=== PATIENT | male | born 1980 | race American Indian/Alaskan Native ===

== ENCOUNTER 2017-06-12 22:44 | Emergency (ER) | payer MEDICARE ==
[2017-06-12 23:55] LABS: Basophils % (Auto) 0.8 % (0.0-1.8); Eosinophils % (Auto) 0.3 % (0.0-4.3); Hematocrit 39.8 % (35.5-45.6); Hemoglobin 13.4 gm/dl (11.8-15.2); Mean Corpuscular HGB Conc 34 % (32-34); Mean Corpuscular Hemoglobin 27 pg (28-32); Mean Corpuscular Volume 79 fl (84-94); Platelet Count 164 K/mm3 (140-440); Red Blood Count 5.02 M/mm3 (3.65-5.03); Red Cell Distribution Width 15.9 % (13.2-15.2); White Blood Count 6.3 K/mm3 (4.5-11.0)
[2017-06-13 00:17] LABS: Anion Gap 23 mmol/L; BUN/Creatinine Ratio 8.88; Blood Urea Nitrogen 8 mg/dL (9-20); Calcium 9.6 mg/dL (8.4-10.2); Carbon Dioxide 22 mmol/L (22-30); Chloride 97.9 mmol/L (98-107); Glucose 98 mg/dL (75-100); Sodium 139 mmol/L (137-145)
[2017-06-13] MEDS ORDERED: ATIVAN IM PRN (06:32)
--- NOTE | 2017-06-13 06:33 | Emergency Department Report ---
ED General Adult HPI - General Chief complaint: Medical Clearance Stated complaint: MH EVAL Time Seen by Provider: 06/13/17 06:25 Source: patient, family, RN notes reviewed Mode of arrival: Ambulatory Limitations: No Limitations - History of Present Illness Initial comments: This is a 36-year-old male. He is previously unknown to me. He has a past medical history of schizophrenia. He is accompanied by his mother, Miss Jo Ann Cole; [phone]. The patient's mother has brought the patient to the ER for evaluation because he is psychiatrically decompensated. She reports she is mumbling to himself, and is threatening to hit her. The patient's mother is concerned that the patient is dangerous to her. Does not have access to guns or firearms, no toxic ingestions. No other complaints. Symptoms have been constant. They do not have exacerbating or relieving factors. The patient's mother further reports this is similar to prior episodes of psychiatric decompensation. -: Gradual Consistency: constant Improves with: none Worsens with: none Associated Symptoms: denies other symptoms - Related Data Home Medications Medication Instructions Recorded Confirmed Last Taken Olanzapine [ZyPREXA] 20 mg PO QHS 06/13/17 06/13/17 Unknown Allergies Allergy/AdvReac Type Severity Reaction Status Date / Time diphenhydramine HCl Allergy Swelling Verified 06/12/17 23:25 [From Benadryl] ED Review of Systems ROS: Stated complaint: MH EVAL Other details as noted in HPI Constitutional: denies: fever Eyes: denies: vision change ENT: denies: epistaxis Respiratory: denies: cough Cardiovascular: denies: chest pain Gastrointestinal: denies: abdominal pain Genitourinary: denies: dysuria Musculoskeletal: denies: as per HPI Skin: denies: lesions Neurological: denies: headache Psychiatric: denies: suicidal thoughts ED Past Medical Hx - Past Medical History Previous Medical History?: Yes Hx Psychiatric Treatment: Yes (schitzophrenia) - Surgical History Past Surgical History?: No - Social History Smoking Status: Never Smoker Substance Use Type: None - Medications Home Medications: Home Medications Medication Instructions Recorded Confirmed Last Taken Type Olanzapine [ZyPREXA] 20 mg PO QHS 06/13/17 06/13/17 Unknown History ED Physical Exam - General Limitations: Other (patient is psychiatrically decompensated, he is disorganized , and he has a tangential thought process.) General appearance: alert, in no apparent distress - Head Head exam: Present: atraumatic, normocephalic - Eye Eye exam: Present: normal appearance, PERRL, EOMI - ENT ENT exam: Present: normal exam, normal orophraynx, mucous membranes moist, normal external ear exam - Neck Neck exam: Present: normal inspection, full ROM. Absent: tenderness, meningismus - Respiratory Respiratory exam: Present: normal lung sounds bilaterally. Absent: respiratory distress, wheezes, rales, rhonchi, stridor, chest wall tenderness, accessory muscle use, decreased breath sounds, prolonged expiratory - Cardiovascular Cardiovascular Exam: Present: regular rate, normal rhythm, normal heart sounds. Absent: bradycardia, tachycardia, irregular rhythm, systolic murmur, diastolic murmur, rubs, gallop - GI/Abdominal GI/Abdominal exam: Present: soft, normal bowel sounds. Absent: distended, tenderness, guarding, rebound, rigid, pulsatile mass - Rectal Rectal exam: Present: deferred - Extremities Exam Extremities exam: Present: normal inspection, full ROM, normal capillary refill. Absent: pedal edema, joint swelling, calf tenderness - Back Exam Back exam: Present: normal inspection, full ROM. Absent: tenderness, CVA tenderness (R), CVA tenderness (L), muscle spasm, paraspinal tenderness, vertebral tenderness - Neurological Exam Neurological exam: Present: alert, normal gait, other (Extraocular movements intact. Tongue midline. No facial droop. Facial sensation intact to light touch in the V1, V2, V3 distribution bilaterally. 5 and 5 strength in 4 extremities.. Sensation is intact to light touch in 4 extremities.). Absent: motor sensory deficit - Psychiatric Psychiatric exam: Present: flat affect - Skin Skin exam: Present: warm, dry, intact, normal color. Absent: rash ED Course Vital Signs 06/12/17 06/13/17 06/13/17 23:25 06:43 06:45 Temperature 98.7 F 98.6 F Pulse Rate 76 72 Respiratory 18 20 20 Rate Blood Pressure 146/101 Blood Pressure 145/98 [Left] O2 Sat by Pulse 98 98 98 Oximetry 06/13/17 06/13/17 06/13/17 08:00 10:00 13:24 Temperature 98.6 F 98.5 F Pulse Rate 70 71 68 Respiratory 18 18 15 Rate Blood Pressure Blood Pressure 136/89 142/88 132/78 [Left] O2 Sat by Pulse 100 100 100 Oximetry - Reevaluation(s) Reevaluation #1: 06/13/17 12:25 Laboratory studies reviewed, they are unremarkable, there is no immediate medical contraindication to psychiatric admission/evaluation and consultation at this time. ED Medical Decision Making - Lab Data Result diagrams: 06/12/17 23:35 06/12/17 23:35 Vital Signs 06/12/17 06/13/17 06/13/17 23:25 06:43 06:45 Temperature 98.7 F 98.6 F Pulse Rate 76 72 Respiratory 18 20 20 Rate Blood Pressure 146/101 Blood Pressure 145/98 [Left] O2 Sat by Pulse 98 98 98 Oximetry Lab Results 06/12/17 06/12/17 06/12/17 Range/Units 23:35 23:35 23:35 WBC 6.3 (4.5-11.0) K/mm3 RBC 5.02 (3.65-5.03) M/mm3 Hgb 13.4 (11.8-15.2) gm/dl Hct 39.8 (35.5-45.6) % MCV 79 L (84-94) fl MCH 27 L (28-32) pg MCHC 34 (32-34) % RDW 15.9 H (13.2-15.2) % Plt Count 164 (140-440) K/mm3 Lymph % (Auto) 21.1 (13.4-35.0) % Rankin % (Auto) 5.4 (0.0-7.3) % Eos % (Auto) 0.3 (0.0-4.3) % Baso % (Auto) 0.8 (0.0-1.8) % Lymph # 1.3 (1.2-5.4) K/mm3 Rankin # 0.3 (0.0-0.8) K/mm3 Eos # 0.0 (0.0-0.4) K/mm3 Baso # 0.0 (0.0-0.1) K/mm3 Seg Neutrophils % 72.4 H (40.0-70.0) % Seg Neutrophils # 4.5 (1.8-7.7) K/mm3 Carbon Dioxide 22 (22-30) mmol/L BUN 8 L (9-20) mg/dL Creatinine 0.9 (0.8-1.5) mg/dL Estimated GFR > 60 ml/min BUN/Creatinine Ratio 8.88 % Glucose 98 (75-100) mg/dL Calcium 9.6 (8.4-10.2) mg/dL Urine Color (Yellow) Urine Turbidity (Clear) Urine pH (5.0-7.0) Ur Specific [place] (1.003-1.030) Urine Protein (Negative) mg/dL Urine Glucose (UA) (Negative) mg/dL Urine Ketones (Negative) mg/dL Urine Blood (Negative) Urine Nitrite (Negative) Urine Bilirubin (Negative) Urine Urobilinogen (<2.0) mg/dL Ur Leukocyte Esterase (Negative) Urine WBC (Auto) (0.0-6.0) /HPF Urine RBC (Auto) (0.0-6.0) /HPF U Epithel Cells (Auto) (0-13.0) /HPF Urine Mucus /HPF Urine Opiates Screen Urine Methadone Screen Ur Barbiturates Screen Ur Phencyclidine Scrn Ur Amphetamines Screen U Benzodiazepines Scrn Urine Cocaine Screen U Marijuana (THC) Screen Drugs of Abuse Note Plasma/Serum Alcohol < 0.01 (0-0.07) gm% 06/13/17 06/13/17 Range/Units 06:30 06:30 WBC (4.5-11.0) K/mm3 RBC (3.65-5.03) M/mm3 Hgb (11.8-15.2) gm/dl Hct (35.5-45.6) % MCV (84-94) fl MCH (28-32) pg MCHC (32-34) % RDW (13.2-15.2) % Plt Count (140-440) K/mm3 Lymph % (Auto) (13.4-35.0) % Rankin % (Auto) (0.0-7.3) % Eos % (Auto) (0.0-4.3) % Baso % (Auto) (0.0-1.8) % Lymph # (1.2-5.4) K/mm3 Rankin # (0.0-0.8) K/mm3 Eos # (0.0-0.4) K/mm3 Baso # (0.0-0.1) K/mm3 Seg Neutrophils % (40.0-70.0) % Seg Neutrophils # (1.8-7.7) K/mm3 Carbon Dioxide (22-30) mmol/L BUN (9-20) mg/dL Creatinine (0.8-1.5) mg/dL Estimated GFR ml/min BUN/Creatinine Ratio % Glucose (75-100) mg/dL Calcium (8.4-10.2) mg/dL Urine Color Yellow (Yellow) Urine Turbidity Clear (Clear) Urine pH 6.0 (5.0-7.0) Ur Specific [place] 1.012 (1.003-1.030) Urine Protein <15 mg/dl (Negative) mg/dL Urine Glucose (UA) Neg (Negative) mg/dL Urine Ketones Neg (Negative) mg/dL Urine Blood Sm (Negative) Urine Nitrite Neg (Negative) Urine Bilirubin Neg (Negative) Urine Urobilinogen < 2.0 (<2.0) mg/dL Ur Leukocyte Esterase Neg (Negative) Urine WBC (Auto) < 1.0 (0.0-6.0) /HPF Urine RBC (Auto) < 1.0 (0.0-6.0) /HPF U Epithel Cells (Auto) < 1.0 (0-13.0) /HPF Urine Mucus Few /HPF Urine Opiates Screen Presumptive negative Urine Methadone Screen Presumptive negative Ur Barbiturates Screen Presumptive negative Ur Phencyclidine Scrn Presumptive negative Ur Amphetamines Screen Presumptive negative U Benzodiazepines Scrn Presumptive negative Urine Cocaine Screen Presumptive negative U Marijuana (THC) Screen Presumptive negative Drugs of Abuse Note Disclamer Plasma/Serum Alcohol (0-0.07) gm% Sodium: 139 Potassium: 4.0 Chloride: 97.9. - Medical Decision Making Differential diagnosis: Schizophrenia, medical clearance for psychiatric placement, mood disorder Assessment and plan: 36-year-old male with decompensated psychiatric disease, with his mother reporting that she feels threatened by the patient, and she is concerned that the patient will hit her. The patient has an unremarkable physical examination, his laboratory studies thus far are unremarkable as well. Patient is placed on a 1013. Psychiatric consult will be obtained. Critical care attestation.: If time is entered above; I have spent that time in minutes in the direct care of this critically ill patient, excluding procedure time. ED Disposition Clinical Impression: Medical clearance for psychiatric admission Disposition: [id number]/TX-65 PSY HOSP/PSY UNIT Is pt being admited?: No Does the pt Need Aspirin: No Condition: Stable Referrals: VALDEMAR HILL MD [Other] - 3-5 Days
[2017-06-13 06:42] LABS: Urine Drugs of Abuse Note Disclamer
[2017-06-13 06:47] LABS: Bilirubin,Urine NEG (Negative); Blood,Urine SM (Negative); Ketones,Urine NEG (Negative); Leukocyte Esterase,Urine NEG (Negative); Mucus,Urine FEW /HPF; Nitrite,Urine NEG (Negative); Protein,Urine <15 mg/dL mg/dL (Negative); RBC,Urine < 1.0 /HPF (0.0-6.0); Urobilinogen,Urine < 2.0 mg/dL (<2.0); WBC,Urine < 1.0 /HPF (0.0-6.0)
[2017-06-13 13:24] VITALS: BP 132/78
--- NOTE | 2017-06-13 15:37 | Consultation ---
History of Present Illness - Reason for Consult Consult date: 06/13/17 Reason for consult: Mental Health Evaluation Requesting physician: KELLY CARRASCO - Chief Complaint Chief complaint: "Sweeney is my problem" - History of Present Psychiatric Illness The patient's mother has brought the patient to the ER for mental health evaluation. His mother reports that he mumbles to himself and threaten her. Today patient is calm and cooperative, with a tangential thought process. He stated that "Patel" tells him what to do. Per his mother Jo Ann Naidu, the voice of "Patel" has increased over the last couple months. During our conversation, the patient displayed thought blocking and disorganized speech. He had to be redirected multiple times during our conversation, possibly responding to internal stimuli. He stated that "Patel" rules everything and he must follow his direction. He denies SI/HI's, VH's, and depression. His mother stated that he receive the monthly Invega injection (May last administration) and take Zyprexa 20 mg PO for Schizophrenia. The patient stated that he used ecstasy in the past. He denies recreational drug use now and alcohol consumption (etoh). Medications and Allergies Allergies Allergy/AdvReac Type Severity Reaction Status Date / Time diphenhydramine HCl Allergy Swelling Verified 06/12/17 23:25 [From Benadryl] Home Medications Medication Instructions Recorded Confirmed Last Taken Type Olanzapine [ZyPREXA] 20 mg PO QHS 06/13/17 06/13/17 Unknown History Past psychiatric history - Past Medical History Past Medical History: No medical history Past Surgical History: No surgical history - past Psychiatric treatment and history Psych: Schizophrenia psychiatric treatment history: Multiple inpatient psy settings. Patient see Dr Martin outpatient. Denies a fam psy hx. - Social History Social history: lives with family ([employer] graduate, [employer]) Mental Status Exam - Vital signs Last Vital Signs Temp 98.5 F 06/13/17 13:24 Pulse 68 06/13/17 13:24 Resp 15 06/13/17 13:24 BP 132/78 06/13/17 13:24 Pulse Ox 100 06/13/17 13:24 - Exam Narrative exam: ROS: (+) psychosis MSE: Appearance: calm, cooperative Behavior: regular eye contact Speech: regular rate and tone Mood: "I am good" Affect: labile Thought Process: tangential Thought Content: denies SI/HI's and AVH's, delusional, disorganized Motor Activity: ambulatory Cognition: A/Ox 3 Insight: poor Judgment: poor Results Result Diagrams: 06/12/17 23:35 06/12/17 23:35 Abnormal lab results 06/12/17 06/12/17 06/13/17 Range/Units 23:35 23:35 07:10 MCV 79 L (84-94) fl MCH 27 L (28-32) pg RDW 15.9 H (13.2-15.2) % Seg Neutrophils % 72.4 H (40.0-70.0) % BUN 8 L (9-20) mg/dL Salicylates < 0.3 L (2.8-20.0) mg/dL All other labs normal. Assessment and Plan Assessment and plan: Impression: Historical Dx: Schizophrenia. Today patient is calm and cooperative , with a tangential thought process. Patient experiencing command AH's. DDx: R/O Bipolar Recommendation/Plan: Continue 101[address] [facility].
== END 2017-06-13 13:45 ==
LOC: EEVIPCON 22:44 → ED 22:44
DX: Z00.8 Encounter for other general examination (principal); F20.9 Schizophrenia, unspecified; Z88.8 Allergy status to other drugs, medicaments and biological substances
CPT/HCPCS: 36415; 51701; 80048; 80307; 81001; 82550; 85025; 99285; G0480; 80320

== ENCOUNTER 2017-10-02 11:13 | Emergency (ER) | payer MEDICARE ==
[2017-10-02] MEDS ORDERED: HALDOL ONE (13:44)
[2017-10-02] MEDS ORDERED: ATIVAN IM PRN (13:46)
[2017-10-02] MEDS ORDERED: HALDOL IM PRN (13:46)
--- NOTE | 2017-10-02 13:46 | Emergency Department Report ---
ED General Adult HPI - General Chief complaint: Psych Stated complaint: MENTAL HEALTH EVALUATION Time Seen by Provider: 10/02/17 13:37 Source: family, RN notes reviewed, old records reviewed Mode of arrival: Ambulatory Limitations: Other (patient is psychiatrically decompensated) - History of Present Illness Initial comments: This is a 36-year-old male who has been previously evaluated by this provider. Patient has a past medical history of either schizophrenia or possible bipolar disorder. Patient brought to the hospital today for psychiatric symptoms. Patient denies headache, neck pain, chest pain, abdominal pain and shortness of breath. Patient is very disorganized, cannot describe the qualitative nature of his symptoms, he cannot describe exacerbating or relieving factors. The patient denies overdose, he can't describe radiation. -: unknown Radiation: other (per hpi) Quality: other (per hpi) Consistency: other (per hpi) Improves with: other (per hpi) Worsens with: other (per hpi) Associated Symptoms: other (per hpi) - Related Data Home Medications Medication Instructions Recorded Confirmed Last Taken Olanzapine [ZyPREXA] 20 mg PO QHS 06/13/17 06/13/17 Unknown Allergies Allergy/AdvReac Type Severity Reaction Status Date / Time diphenhydramine HCl Allergy Swelling Verified 06/12/17 23:25 [From Benadryl] ED Review of Systems ROS: Stated complaint: MENTAL HEALTH EVALUATION Other details as noted in HPI Constitutional: denies: fever Eyes: denies: eye discharge ENT: denies: epistaxis Respiratory: denies: cough Cardiovascular: denies: chest pain Gastrointestinal: denies: vomiting Genitourinary: as per HPI. denies: dysuria Neurological: denies: weakness Psychiatric: denies: homicidal thoughts, suicidal thoughts ED Past Medical Hx - Past Medical History Previous Medical History?: Yes Hx Psychiatric Treatment: Yes (schitzophrenia) - Surgical History Past Surgical History?: No - Social History Smoking Status: Never Smoker Substance Use Type: None - Medications Home Medications: Home Medications Medication Instructions Recorded Confirmed Last Taken Type Olanzapine [ZyPREXA] 20 mg PO QHS 06/13/17 06/13/17 Unknown History ED Physical Exam - General Limitations: Other (patient psychotic, patient is disorganized) General appearance: alert, in no apparent distress - Head Head exam: Present: atraumatic, normocephalic - Eye Eye exam: Present: normal appearance, EOMI, other (visual acuity intact to finger counting, color perception, reading at a close distance) - ENT ENT exam: Present: normal exam, normal orophraynx, mucous membranes moist, normal external ear exam - Neck Neck exam: Present: normal inspection, full ROM - Respiratory Respiratory exam: Present: normal lung sounds bilaterally. Absent: respiratory distress, chest wall tenderness - Cardiovascular Cardiovascular Exam: Present: regular rate, normal rhythm, normal heart sounds. Absent: systolic murmur, diastolic murmur, rubs, gallop - GI/Abdominal GI/Abdominal exam: Present: soft, normal bowel sounds. Absent: distended, tenderness, guarding, rebound, rigid, pulsatile mass - Rectal Rectal exam: Present: deferred - Extremities Exam Extremities exam: Present: normal inspection, full ROM, normal capillary refill. Absent: pedal edema, joint swelling, calf tenderness - Back Exam Back exam: Present: normal inspection, full ROM. Absent: tenderness, CVA tenderness (R), paraspinal tenderness, vertebral tenderness - Neurological Exam Neurological exam: Present: alert, normal gait, other (Extraocular movements intact. Tongue midline. No facial droop. Facial sensation intact to light touch in the V1, V2, V3 distribution bilaterally. 5 and 5 strength in 4 extremities.. Sensation is intact to light touch in 4 extremities.). Absent: motor sensory deficit - Psychiatric Psychiatric exam: Present: anxious, flat affect - Skin Skin exam: Present: warm, dry, intact, normal color. Absent: rash ED Course Vital Signs 10/02/17 15:17 Temperature 97.3 F L Pulse Rate 91 H Respiratory 20 Rate Blood Pressure 132/89 [Right] O2 Sat by Pulse 97 Oximetry - Reevaluation(s) Reevaluation #1: 10/02/17 15:22 Differential diagnosis, including but not limited to: Medical clearance for psychiatric placement, decompensated psychiatric disease Assessment and plan: 36-year-old male with previous evaluations for disorganized behavior. The patient is psychiatrically decompensated and requires a 1013 secondary to inability to care for self. His physical exam is unremarkable laboratory studies unremarkable at this time, serum toxicology study is pending., 10/02/17 15:22 Reevaluation #2: 10/02/17 15:37 Serum toxicology studies unremarkable. At this point in time, I do not appreciate any immediate medical contraindication to psychiatric admission/ evaluation and consultation, the crisis team is paged and informed. ED Medical Decision Making - Lab Data Result diagrams: 10/02/17 14:01 10/02/17 14:01 Vital Signs 10/02/17 15:17 Temperature 97.3 F L Pulse Rate 91 H Respiratory 20 Rate Blood Pressure 132/89 [Right] O2 Sat by Pulse 97 Oximetry Lab Results 10/02/17 10/02/17 Range/Units 14:01 14:01 WBC 5.5 (4.5-11.0) K/mm3 RBC 5.02 (3.65-5.03) M/mm3 Hgb 13.8 (11.8-15.2) gm/dl Hct 40.2 (35.5-45.6) % MCV 80 L (84-94) fl MCH 27 L (28-32) pg MCHC 34 (32-34) % RDW 15.1 (13.2-15.2) % Plt Count 179 (140-440) K/mm3 Sodium 141 (137-145) mmol/L Potassium 3.6 (3.6-5.0) mmol/L Chloride 100.1 (98-107) mmol/L Carbon Dioxide 24 (22-30) mmol/L Anion Gap 21 mmol/L BUN 6 L (9-20) mg/dL Creatinine 0.9 (0.8-1.5) mg/dL Estimated GFR > 60 ml/min BUN/Creatinine Ratio 7 % Glucose 126 H (75-100) mg/dL Calcium 9.2 (8.4-10.2) mg/dL Total Creatine Kinase 255 H (55-170) units/L Critical care attestation.: If time is entered above; I have spent that time in minutes in the direct care of this critically ill patient, excluding procedure time. ED Disposition Clinical Impression: Medical clearance for psychiatric admission Disposition: DC/TX-65 PSY HOSP/PSY UNIT Is pt being admited?: No Does the pt Need Aspirin: No Condition: Good Referrals: PRIMARY CARE, [Primary Care Provider] - 3-5 Days
[2017-10-02 14:17] LABS: Hematocrit 40.2 % (35.5-45.6); Hemoglobin 13.8 gm/dl (11.8-15.2); Mean Corpuscular HGB Conc 34 % (32-34); Mean Corpuscular Hemoglobin 27 pg (28-32); Mean Corpuscular Volume 80 fl (84-94); Platelet Count 179 K/mm3 (140-440); Red Blood Count 5.02 M/mm3 (3.65-5.03); Red Cell Distribution Width 15.1 % (13.2-15.2); White Blood Count 5.5 K/mm3 (4.5-11.0)
[2017-10-02 14:36] LABS: Anion Gap 21 mmol/L; BUN/Creatinine Ratio 7; Blood Urea Nitrogen 6 mg/dL (9-20); Calcium 9.2 mg/dL (8.4-10.2); Carbon Dioxide 24 mmol/L (22-30); Chloride 100.1 mmol/L (98-107); Creatine Kinase 255 units/L (55-170); Glucose 126 mg/dL (75-100); Potassium 3.6 mmol/L (3.6-5.0); Sodium 141 mmol/L (137-145)
[2017-10-03 08:58] VITALS: BP 108/71
--- NOTE | 2017-10-03 13:41 | Consultation ---
History of Present Illness - Reason for Consult Consult date: 10/03/17 Reason for consult: Mental Health Evaluation Requesting physician: KELLY CARRASCO - Chief Complaint Chief complaint: "My head is to small" - History of Present Psychiatric Illness 36 y.o. AA male presenting to [facility] for bizarre behavior. Today patient is calm, but disorganized and delusional during the assessment. He stated that his head is to small for his body and he was having chest pain (delusional). Per the ER, patient is medically stable at this time. Patient would not confirm or deny hearing voices. The patient had to be redirected several time during the interview. Per collateral information from his mother Jo Ann Naidu, she stated that her son was due his Abilify injection yesterday for schizophrenia, but he refused. She stated that he was brought to [facility] for evaluation. She stated that her son was experiencing AH's and paranoia the last couple days. The patient denies SI/HI's and VH's. He denies recreational drug use and alcohol consumption (etoh). Medications and Allergies Allergies Allergy/AdvReac Type Severity Reaction Status Date / Time diphenhydramine HCl Allergy Swelling Verified 06/12/17 23:25 [From Benadryl] Home Medications Medication Instructions Recorded Confirmed Last Taken Type Olanzapine [ZyPREXA] 20 mg PO QHS 06/13/17 10/02/17 Unknown History ARIPiprazole [Abilify Maintena] 400 mg IM QMONTH 10/02/17 10/02/17 Unknown History Melatonin 10 mg PO HS 10/02/17 10/02/17 Unknown History diphenhydrAMINE [Benadryl] 50 mg PO HS 10/02/17 10/02/17 Unknown History Active Meds: Active Medications Haloperidol Lactate (Haldol) 5 mg IM Q6HR PRN PRN Reason: Agitation Last Admin: 10/02/17 13:50 Dose: 5 mg Lorazepam (Ativan) 2 mg IM Q4HR PRN PRN Reason: Agitation Last Admin: 10/02/17 15:38 Dose: 2 mg Past psychiatric history - Past Medical History Past Medical History: No medical history Past Surgical History: No surgical history - past Psychiatric treatment and history Psych: Schizophrenia psychiatric treatment history: Multiple inpatient psy services. Cannot confirm or deny a fam psy hx. Mental Status Exam - Vital signs Last Vital Signs Temp 97.8 F 10/03/17 08:58 Pulse 79 10/03/17 08:30 Resp 20 10/03/17 08:30 BP 108/71 10/03/17 08:30 Pulse Ox 100 10/03/17 08:30 - Exam Narrative exam: MSE: Appearance: calm, cooperative Behavior: regular eye contact Speech: regular rate and tone Mood: "okay" Affect: blunted Thought Process: not logical, tangential Thought Content: denies SI/HI's and VH's, delusional, disorganized Motor Activity: sitting up in bed Cognition: A/Ox3 Insight: poor Judgment: poor Results Result Diagrams: 10/02/17 14:01 10/02/17 14:01 Abnormal lab results 10/02/17 10/02/17 10/02/17 Range/Units 14:01 14:01 14:01 MCV 80 L (84-94) fl MCH 27 L (28-32) pg BUN 6 L (9-20) mg/dL Glucose 126 H (75-100) mg/dL Total Creatine Kinase 255 H (55-170) units/L Salicylates < 0.3 L (2.8-20.0) mg/dL All other labs normal. Assessment and Plan Assessment and plan: Impression: Schizophrenia. Today patient is calm, but disorganized and delusional during the assessment. Patient experiencing perceptional disturbances. DDx: R/O Bipolar DO Recommendation/Plan: Continue 1013 with placement to inpatient psy services. Start Abilify 5 mg PO daily for psychosis. Discussed possible metabolic side effects of Abilify with patient.
[2017-10-03] MEDS ORDERED: ABILIFY PO SCH (15:00)
== END 2017-10-03 17:10 ==
LOC: EEVIPCON 11:13 → ED 11:13
DX: F29 Unspecified psychosis not due to a substance or known physiological condition (principal); F20.9 Schizophrenia, unspecified; Z88.8 Allergy status to other drugs, medicaments and biological substances
CPT/HCPCS: 36415; 80048; 82550; 85027; 96372; 99285; G0480; J1630; J2060; 80320